=== PATIENT | male | born 1975 | race Two or more races ===

== ENCOUNTER 2017-04-22 14:59 | Emergency (ER) | payer SELFPAY ==
[~2017-04-22] VITALS: Ht 182.9 cm; Wt 113.4 kg
[2017-04-22 15:19] VITALS: BP 139/77
[2017-04-22] MEDS ORDERED: ALBUTEROL FS 2.5 MG/3 ML VIAL.NEB NEB ONE (15:30)
--- NOTE | 2017-04-22 15:50 | NUR ---
RT AT BS FOR BREATHING TX.
[2017-04-22] MEDS ORDERED: ALBUTEROL FS 2.5 MG/3 ML VIAL.NEB ONE (15:51)
== END 2017-04-22 16:44 | disposition home or self-care (01) ==
LOC: ER 15:04
DX: J45.909 Unspecified asthma, uncomplicated (principal); R05 Cough
CPT/HCPCS: 71045; 94640; 99283; A4606; Z7610